=== PATIENT | female | born 1935 | race Two or more races ===

== ENCOUNTER 2020-07-07 11:31 | Emergency (ER) | payer OTHER ==
[~2020-07-07] VITALS: Ht 167.6 cm; Wt 52.2 kg
[2020-07-07] MEDS ORDERED: COZAAR25 MG (11:57)
[2020-07-07] MEDS ORDERED: SYNTHROID50 MCG (11:58)
[2020-07-07] MEDS ORDERED: TOPROL XL50 M1 (11:58)
[2020-07-07] MEDS ORDERED: NEXIUM 24HR20 M1 (11:58)
== END 2020-07-07 18:00 | disposition home or self-care (01) ==
LOC: ER 11:31
DX: R14.0 Abdominal distension (gaseous) (principal); E63.8 Other specified nutritional deficiencies; C18.9 Malignant neoplasm of colon, unspecified; Z03.818 Encounter for observation for suspected exposure to other biological agents ruled out

== ENCOUNTER 2020-07-13 10:50 | Inpatient (IN) | payer OTHER ==
[~2020-07-13] VITALS: Ht 167.6 cm; Wt 52.6 kg
[~2020-07-13 10:50] MED LIST: COZAAR25 MG; NEXIUM 24HR20 M1; SYNTHROID50 MCG; TOPROL XL50 M1
[2020-07-23] MEDS ORDERED: PAROXETINE HCL20 MG (09:08)
[2020-07-23] MEDS ORDERED: MAXIMUM D3325 MCG (09:08)
== END 2020-08-08 08:06 | disposition expired | DRG 329 ==
LOC: ER 10:50 → SURG 13:44 → SURH 13:44 → SURG 07-16 14:10 → SURH 07-18 15:38 → O/R 07-22 00:13 → ICU 07-24 01:18
PROVIDERS: ADMIT Surgery; ATTEND Surgery
PROC: 4A12X4Z Monitoring of Cardiac Electrical Activity, External Approach (ICD-10-PCS; 2020-07-13)
PROC: 4A033R1 Measurement of Arterial Saturation, Peripheral, Percutaneous Approach (ICD-10-PCS; 2020-07-13)
PROC: 02HV33Z Insertion of Infusion Device into Superior Vena Cava, Percutaneous Approach (ICD-10-PCS; 2020-07-14)
PROC: B24BZZZ Ultrasonography of Heart with Aorta (ICD-10-PCS; 2020-07-14)
PROC: 30233N1 Transfusion of Nonautologous Red Blood Cells into Peripheral Vein, Percutaneous Approach (ICD-10-PCS; 2020-07-16)
PROC: 3E0F7SF Introduction of Other Gas into Respiratory Tract, Via Natural or Artificial Opening (ICD-10-PCS; 2020-07-18)
PROC: 07BC0ZX Excision of Pelvis Lymphatic, Open Approach, Diagnostic (ICD-10-PCS; 2020-07-20)
PROC: 0DBU0ZZ Excision of Omentum, Open Approach (ICD-10-PCS; 2020-07-20)
PROC: 0DTG0ZZ Resection of Left Large Intestine, Open Approach (ICD-10-PCS; principal; 2020-07-20 09:00)
PROC: 0BH17EZ Insertion of Endotracheal Airway into Trachea, Via Natural or Artificial Opening (ICD-10-PCS; 2020-07-21)
PROC: 5A1955Z Respiratory Ventilation, Greater than 96 Consecutive Hours (ICD-10-PCS; 2020-07-21)
PROC: 0D9770Z Drainage of Stomach, Pylorus with Drainage Device, Via Natural or Artificial Opening (ICD-10-PCS; 2020-07-21)
PROC: 05H633Z Insertion of Infusion Device into Left Subclavian Vein, Percutaneous Approach (ICD-10-PCS; 2020-07-26)
PROC: B547ZZA Ultrasonography of Left Subclavian Vein, Guidance (ICD-10-PCS; 2020-07-26)
PROC: 5A1D70Z Performance of Urinary Filtration, Intermittent, Less than 6 Hours Per Day (ICD-10-PCS; 2020-07-26)
DX: C18.6 Malignant neoplasm of descending colon (principal); A41.9 Sepsis, unspecified organism; J96.00 Acute respiratory failure, unspecified whether with hypoxia or hypercapnia; N17.0 Acute kidney failure with tubular necrosis; R65.21 Severe sepsis with septic shock; G93.41 Metabolic encephalopathy; N18.6 End stage renal disease; B37.0 Candidal stomatitis; N39.0 Urinary tract infection, site not specified; J98.11 Atelectasis; E87.4 Mixed disorder of acid-base balance; E46 Unspecified protein-calorie malnutrition; D62 Acute posthemorrhagic anemia; I12.0 Hypertensive chronic kidney disease with stage 5 chronic kidney disease or end stage renal disease; K92.0 Hematemesis; G40.89 Other seizures; E86.0 Dehydration; Z20.828 Contact with and (suspected) exposure to other viral communicable diseases; D64.9 Anemia, unspecified; B96.1 Klebsiella pneumoniae [K. pneumoniae] as the cause of diseases classified elsewhere; E87.6 Hypokalemia; E87.5 Hyperkalemia; D69.49 Other primary thrombocytopenia; Z99.2 Dependence on renal dialysis; Z66 Do not resuscitate